=== PATIENT | male | born 1975 | race Caucasian/White ===

== ENCOUNTER 2018-01-23 01:44 | Emergency (ER) | payer BC, OTHER ==
[~2018-01-23] VITALS: Ht 177.8 cm; Wt 65.0 kg
[2018-01-23 01:47] VITALS: BP 119/90
[2018-01-23] MEDS ORDERED: SODIUM CHLORIDE FLUSH 10ML SYR IVF ONE (02:00)
[2018-01-23 02:17] LABS: BASOPHILS # (AUTO) 0.06 x10^3/uL (0-0.1); BASOPHILS % (AUTO) 0 % (0-1); EOSINOPHILS # (AUTO) 0.08 x10^3/uL (0-0.4); EOSINOPHILS % (AUTO) 1 % (1-7); LYMPHOCYTES % (AUTO) 4 % (22-44); MD NO; MEAN CORPUSCULAR HEMOGLOBIN 30.6 pg (27.5-34.5); MEAN CORPUSCULAR HGB CONC 33.1 g/dL (33.2-36.2); MEAN CORPUSCULAR VOLUME 92.4 fL (81-97); MEAN PLATELET VOLUME 7.5 fL (7.4-10.4); MONOCYTES # (AUTO) 0.53 x10^3/uL (0.2-0.8); MONOCYTES % (AUTO) 3 % (2-9); NEUTROPHILS # (AUTO) 14.89 x10^3/uL (1.8-6.8); NEUTROPHILS % (AUTO) 92 % (42-75); PLATELET COUNT 329 x10^3/uL (130-400); RED BLOOD COUNT 5.67 x10^6/uL (4.38-5.82); RED CELL DISTRIBUTION WIDTH 13.6 % (9.4-14.8)
[2018-01-23 02:29] LABS: ALANINE AMINOTRANSFERASE 28 U/L (12-78); ALBUMIN 4.7 g/dL (3.4-5.0); ANION GAP 13 mmol/L (5-15); CALCIUM 9.5 mg/dL (8.5-10.1); CHLORIDE 103 mmol/L (98-107); CREATININE 1.38 mg/dL (0.7-1.3)
[2018-01-23 02:34] LABS: ALKALINE PHOSPHATASE 105 U/L (45-117); BILIRUBIN,TOTAL 2.2 mg/dL (0.2-1.0); TOTAL PROTEIN 8.2 g/dL (6.4-8.2); TROPONIN I < 0.015 ng/mL (0.000-0.045)
== END 2018-01-23 03:46 | disposition home or self-care (01) ==
LOC: ED 02:55
DX: R00.2 Palpitations (principal)
CPT/HCPCS: 36415; 71045; 80053; 83690; 84484; 85025; 93005; 99285